=== PATIENT | male | born 1980 | race Caucasian/White ===

== ENCOUNTER 2019-07-31 12:47 | Inpatient (IN) | payer OTHER ==
[2019-07-31 14:22] VITALS: BMI 27.4
--- NOTE | 2019-07-31 15:39 | HP ---
CIWA Score Nausea/Vomitin Muscle Tremors: 4-Moderate,w/Arms Extend Anxiety: 4-Mod. Anxious/Guarded Agitation: 4-Moderately Restless Paroxysmal Sweats: 2 Orientation: 1-Uncertain about Date Tacttile Disturbances: 2-Mild Itch/Numbness/Burn Auditory Disturbances: 2-Mild Harshness/Frighten Visual Disturbances: 2-Mild Sensitivity Headache: 2-Mild CIWA-Ar Total Score: 25 - Admission Criteria OASAS Guidelines: Admission for Medically Managed Detox: Requires at least one of the followin. CIWA greater than 12 2. Seizures within the past 24 hours 3. Delirium tremens within the past 24 hours 4. Hallucinations within the past 24 hours 5. Acute intervention needed for co occurring medical disorder 6. Acute intervention needed for co occurring psychiatric disorder 7. Severe withdrawal that cannot be handled at a lower level of care (continued vomiting, continued diarrhea, abnormal vital signs) requiring intravenous medication and/or fluids 8. Admission ROS BHS - HPI Allergies/Adverse Reactions: Allergies Allergy/AdvReac Type Severity Reaction Status Date / Time No Known Allergies Allergy Verified 07/31/19 14:17 History of Present Illness: pt here requesting detox from etoh use , reports 25 beers/day since 2-3 mo ago , previously in AA x 2 mo , intermittent periods of sobriety since 19 , longest sobriety 64 days . latest use yesterday . pmhx : htn Exam Limitations: Clinical Condition - Ebola screening Have you traveled outside of the country in the last 21 days: No Have you had contact with anyone from an Ebola affected area: No Do you have a fever: No - Review of Systems Constitutional: See HPI, Loss of Appetite EENT: reports: No Symptoms Reported Respiratory: reports: No Symptoms reported Cardiac: reports: No Symptoms Reported, Other (reports chest tightness with anxiety) GI: reports: See HPI, Nausea, Poor Appetite : reports: No Symptoms Reported Musculoskeletal: reports: No Symptoms Reported Integumentary: reports: No Symptoms Reported Neuro: reports: See HPI Endocrine: reports: No Symptoms Reported Psychiatric: reports: Agitated, Anxious Patient History - Smoking Cessation Smoking history: Never smoked - Substances abused Alcohol Substance route: Oral Frequency: Daily Amount used: 18 beers Age of first use: 19 Date of last use: 07/30/19 Admission Physical Exam S - Vital Signs Vital Signs: Vital Signs - 24 hr 11/21/19 14:10 Temperature 99.5 F Pulse Rate 88 Respiratory 20 Rate Blood Pressure 143/94 - Physical General Appearance: Yes: Moderate Distress, Tremorous, Anxious HEENTM: Yes: EOMI, Hearing grossly Normal, Normocephalic, Normal Voice Respiratory: Yes: Lungs Clear, Normal Breath Sounds, Decreased Breath Sounds, No Respiratory Distress, No Accessory Muscle Use Neck: Yes: No masses,lesions,Nodules, Trachea in good position Cardiology: Yes: Regular Rhythm, Regular Rate, S1, S2 Abdominal: Yes: Non Tender, Soft Musculoskeletal: Yes: Gait Steady Extremities: Yes: Normal Range of Motion, Tremors Neurological: Yes: Alert, Motor Strength 5/5, Depressed Affect Integumentary: Yes: Warm - Diagnostic (1) Alcohol abuse Current Visit: Yes Status: Chronic Breathalyzer - Breathalyzer Breathalyzer: 0.030 Urine Drug Screen - Test Device Lot number: [id number] Expiration date: 04/09/21 - Control Is test valid?: Yes - Results Drug screen NEGATIVE: Yes Inpatient Rehab Admission - Rehab Decision to Admit Inpatient rehab admission?: No
[2019-07-31] MEDS ORDERED: MELATONIN 5 MG TABLETS PO PRN (15:59)
[2019-07-31] MEDS ORDERED: MAGNESIUM HYDROX 2400MG/30ML ORAL SUSPENSION 30 ML CUP PO PRN (15:59)
[2019-07-31] MEDS ORDERED: MENTHOL/PHENOL 1 EACH UD MM PRN (15:59)
[2019-07-31] MEDS ORDERED: MAGNESIUM CITRATE 300 ML BOTTLE PO PRN (15:59)
[2019-07-31] MEDS ORDERED: hydrOXYzine PAMOATE 25 MG CAPSULE (FP) PO PRN (15:59)
[2019-07-31] MEDS ORDERED: ONDANSETRON *ODT* 4 MG TABLET SL PRN (15:59)
[2019-07-31] MEDS ORDERED: BISMUTH SUBSALICYLATE 524 MG/30 ML UD PO PRN (15:59)
[2019-07-31] MEDS ORDERED: ACETAMINOPHEN 325 MG TABLET (FP) PO PRN ×2 (15:59)
[2019-07-31] MEDS ORDERED: METHOCARBAMOL 500 MG TABLET PO PRN (15:59)
[2019-07-31] MEDS ORDERED: diazePAM 5 MG TABLET PO ONE (16:00)
[2019-07-31] MEDS ORDERED: diazePAM 5 MG TABLET PO PRN (16:00)
[2019-07-31] MEDS ORDERED: chlordiazePOXIDE HCL 25 MG CAPSULE PO PRN (16:43)
[2019-07-31] MEDS: chlordiazePOXIDE HCL 25 MG CAPSULE PO SCH ×2 (18:12→22:15)
[2019-07-31] MEDS: MAG HYDROX/AL HYDROX/SIMETH 30 ML UNIT-DOSE CUP PO PRN (18:16)
[2019-07-31] MEDS ORDERED: diazePAM 5 MG TABLET PO SCH (22:00)
[2019-07-31] MEDS ORDERED: THIAMINE HCL 100 MG TABLET (FP) PO SCH (22:00)
[2019-08-01] MEDS: chlordiazePOXIDE HCL 25 MG CAPSULE PO SCH ×3 (05:55→16:53)
[2019-08-01] MEDS: MAG HYDROX/AL HYDROX/SIMETH 30 ML UNIT-DOSE CUP PO PRN (06:25)
[2019-08-01 09:59] LABS: ALBUMIN 3.6 g/dl (3.4-5.0); BILIRUBIN,TOTAL 1.3 mg/dL (0.2-1); CALCIUM 8.9 mg/dL (8.5-10.1); CREATININE 0.7 mg/dL (0.55-1.3); POTASSIUM 3.3 mmol/L (3.5-5.1); TOT PROT 8.1 g/dl (6.4-8.2)
[2019-08-01] MEDS ORDERED: PRENATAL VITAMINS W/ FOLIC ACID TABLET (FP) PO SCH (10:00)
[2019-08-01 10:01] LABS: HEMATOCRIT 41.2 % (35.4-49); HEMOGLOBIN 13.6 GM/dL (11.7-16.9); MCH 27.5 pg (25.7-33.7); MCHC 32.9 g/dl (32.0-35.9); MEAN CELL VOLUME 83.4 fl (80-96); MEAN PLT VOLUME 8.9 fl (7.5-11.1); PLATELET COUNT 112 K/MM3 (134-434); RBC 4.94 M/mm3 (4.00-5.60); RDW 15.1 % (11.9-15.9); WHITE BLOOD COUNT 4.2 K/mm3 (4.0-10.0)
--- NOTE | 2019-08-01 12:45 | PN ---
[facility] CIWA - CIWA Score Nausea/Vomitin-Mild Nausea/No Vomiting Muscle Tremors: 2 Anxiety: 2 Agitation: 2 Paroxysmal Sweats: No Perspiration Orientation: 0-Oriented Tacttile Disturbances: 1-Very Mild Itch/Numbness Auditory Disturbances: 0-None Visual Disturbances: 0-None Headache: 2-Mild CIWA-Ar Total Score: 10 S Progress Note (SOAP) Subjective: alert,irrtable,anxious,interrupted sleep,tremor Objective: 08/01/19 12:42 Vital Signs Temperature 97.7 F 08/01/19 09:20 Pulse Rate 76 08/01/19 09:20 Respiratory Rate 18 08/01/19 09:20 Blood Pressure 135/98 08/01/19 09:20 O2 Sat by Pulse Oximetry (%) Laboratory Last Values WBC 4.2 K/mm3 (4.0-10.0) 08/01/19 08:00 RBC 4.94 M/mm3 (4.00-5.60) 08/01/19 08:00 Hgb 13.6 GM/dL (11.7-16.9) 08/01/19 08:00 Hct 41.2 % (35.4-49) 08/01/19 08:00 MCV 83.4 fl (80-96) 08/01/19 08:00 MCH 27.5 pg (25.7-33.7) 08/01/19 08:00 MCHC 32.9 g/dl (32.0-35.9) 08/01/19 08:00 RDW 15.1 % (11.9-15.9) 08/01/19 08:00 Plt Count 112 K/MM3 (134-434) L 08/01/19 08:00 MPV 8.9 fl (7.5-11.1) 08/01/19 08:00 Sodium 134 mmol/L (136-145) L 08/01/19 08:00 Potassium 3.3 mmol/L (3.5-5.1) L 08/01/19 08:00 Chloride 99 mmol/L (98-107) 08/01/19 08:00 Carbon Dioxide 28 mmol/L (21-32) 08/01/19 08:00 Anion Gap 7 MMOL/L (8-16) L 08/01/19 08:00 BUN 6.0 mg/dL (7-18) L 08/01/19 08:00 Creatinine 0.7 mg/dL (0.55-1.3) 08/01/19 08:00 Est GFR (CKD-EPI)AfAm 139.73 08/01/19 08:00 Est GFR (CKD-EPI)NonAf 120.56 08/01/19 08:00 Random Glucose 96 mg/dL (74-106) 08/01/19 08:00 Calcium 8.9 mg/dL (8.5-10.1) 08/01/19 08:00 Total Bilirubin 1.3 mg/dL (0.2-1) H 08/01/19 08:00 AST 53 U/L (15-37) H 08/01/19 08:00 ALT 29 U/L (13-61) 08/01/19 08:00 Alkaline Phosphatase 106 U/L (45-117) 08/01/19 08:00 Total Protein 8.1 g/dl (6.4-8.2) 08/01/19 08:00 Albumin 3.6 g/dl (3.4-5.0) 08/01/19 08:00 RPR Titer Nonreactive (NONREACTIVE) 08/01/19 08:00 Assessment: 08/01/19 12:44 withdrawal symptom Plan: continue detox librium regimen,k is 3.3,kdur 20 meq po daily for 3 days
[2019-08-01] MEDS ORDERED: POTASSIUM CHLORIDE TABS 20 MEQ TABLET.ER (FP) PO SCH (13:00)
[2019-08-01 17:12] VITALS: TEMP 98.1
--- NOTE | 2019-08-01 17:18 | CONSULT ---
[facility] Psychiatric Consult - Data Date of interview: 08/01/19 Admission source: [facility] Identifying data: First admission to [facility] for this 38 y/o male self-referred for detoxification (KIRAN issues : alcohol). Interviewed at [address] [place] [address]. Patient is single, no dependents, domiciled and reportedly self-employed. Substance Abuse History: Discussed with the patient. Details in current [facility] report. As follows : Smoking history: Never smoked. Substances abused. Alcohol. Substance route: Oral. Frequency: Daily. Amount used: 18 beers. Age of first use: 19. Date of last use: 07/30/19 Medical History: Patient endorses good general health. Psychiatric History: Patient denies history of psychiatric hospitalizations, OPD care or suicide attempts. Physical/Sexual Abuse/Trauma History: Patient denies. Additional Comment: Negative toxicology. Mental Status Exam - Mental Status Exam Alert and Oriented to: Time, Place, Person Cognitive Function: Good Patient Appearance: Well Groomed Mood: Hopeful, Euthymic Affect: Appropriate, Normal Range Patient Behavior: Appropriate, Cooperative Speech Pattern: Clear, Appropriate Voice Loudness: Normal Thought Process: Intact, Goal Oriented Thought Disorder: Not Present Hallucinations: Denies Suicidal Ideation: Denies Homicidal Ideation: Denies Insight/Judgement: Fair Sleep: Well Appetite: Good Muscle strength/Tone: Normal Gait/Station: Normal Psychiatric Findings - Problem List ([place] 1, 2,3) (1) Alcohol use disorder Current Visit: Yes Status: Chronic - Initial Treatment Plan Initial Treatment Plan: Psychoeducation. Sleep hygiene. Detoxification. AA meetings. Groups. MAT services : discussed with the patient. Observation.
[2019-08-01] MEDS ORDERED: METOPROLOL TARTRATE 25 MG TABLET (FP) PO ONE (18:00)
[2019-08-01 18:38] VITALS: BP 140/98; PULSE 73
--- NOTE | 2019-08-01 18:51 | DS ---
[facility] Rehab Discharge Summary - [facility] Rehab Discharge Summary Admission Date: 07/31/19 Discharge Date: 08/04/19 - History Present History: Alcohol dependence Additional Comments: CLIENT SIGNED OUT AMA. DECLINES ANY DISCUSSION TO CONTINUE TXMENT. RISK FOR ABRUPTLY DISCONTINUING TXMENT DISCUSSED. TO INCLUDE SEIZURE/. CLIENT VERBALIZED UNDERSTANDING AND ACCEPTS RISK. Pertinent Past History: HTN - Discharge Physical Exam Vital Signs: Vital Signs Temperature 98.1 F 08/01/19 17:11 Pulse Rate 73 08/01/19 18:38 Respiratory Rate 18 08/01/19 18:38 Blood Pressure 140/98 08/01/19 18:38 O2 Sat by Pulse Oximetry (%) Pertinent Admission Physical Exam Findings: WITHDRAWAL SX'S Laboratory Tests 08/01/19 08/01/19 08/01/19 08:00 08:00 08:00 WBC 4.2 RBC 4.94 Hgb 13.6 Hct 41.2 MCV 83.4 MCH 27.5 MCHC 32.9 RDW 15.1 Plt Count 112 L MPV 8.9 Sodium 134 L Potassium 3.3 L Chloride 99 Carbon Dioxide 28 Anion Gap 7 L BUN 6.0 L Creatinine 0.7 Est GFR (CKD-EPI)AfAm 139.73 Est GFR (CKD-EPI)NonAf 120.56 Random Glucose 96 Calcium 8.9 Total Bilirubin 1.3 H AST 53 H ALT 29 Alkaline Phosphatase 106 Total Protein 8.1 Albumin 3.6 RPR Titer Nonreactive D/W CLIENT ABOUT ABN k+ LEVEL AND RISK ASSOCIATED IF NOT CORRECTED. ENCOURAGED CLIENT TO WAIT FOR REPEAT LABS SCHED FOR THE MORNING. CLIENT DECLINES. STATES HIS MOTHER IS ALREADY ON HER WAY AND CANT TURN BACK. ADVISED CLIENT TO F/U WITH PCP OR ER FOR C/O C.P, ABNORMAL HEART BEAT, WORSENING FATIGUE, MUSCLE CRAMPS - Treatment Discharge Condition: Discharge condition good - Medication Discharge Medications: Ambulatory Orders Escitalopram Oxalate [Lexapro -] 25 mg PO DAILY 07/31/19 Metoprolol Succinate 100 mg PO DAILY 07/31/19 - Medication-Assisted Treatment (MAT) Medication-Assisted Treatment (MAT): No - Discharge Instructions Diet, activity, other medical instructions: Diet: Activity: Other medical instructions: - Diagnosis (1) Alcohol dependence with withdrawal, uncomplicated Status: Acute (2) HTN (hypertension) Status: Chronic Qualifiers: Hypertension type: essential hypertension Qualified Code(s): I10 - Essential (primary) hypertension - Follow-up Referral Minutes to complete discharge: 30 - AMA Did Patient Leave Against Medical Advice: Yes
[2019-08-02] MEDS ORDERED: chlordiazePOXIDE HCL 25 MG CAPSULE PO SCH (05:00)
[2019-08-02] MEDS ORDERED: diazePAM 5 MG TABLET PO SCH (06:00)
[2019-08-03] MEDS ORDERED: chlordiazePOXIDE HCL 10 MG CAPSULE PO PRN
[2019-08-03] MEDS ORDERED: chlordiazePOXIDE HCL 10 MG CAPSULE PO SCH (05:00)
[2019-08-03] MEDS ORDERED: diazePAM 5 MG TABLET PO ONE (06:00)
[2019-08-04] MEDS ORDERED: chlordiazePOXIDE HCL 10 MG CAPSULE PO SCH (05:00)
[2019-08-05] MEDS ORDERED: chlordiazePOXIDE HCL 10 MG CAPSULE PO ONE (05:00)
== END 2019-08-01 18:17 | disposition left against medical advice (07) | DRG 770 ==
LOC: YASAS 12:47 → Y3N 17:10
PROVIDERS: ADMIT Allergy & Immunology; ATTEND Allergy & Immunology
PROC: HZ2ZZZZ Detoxification Services for Substance Abuse Treatment (ICD-10-PCS; principal; 2019-08-01)
DX: F10.230 Alcohol dependence with withdrawal, uncomplicated (principal)
CPT/HCPCS: 36415; 80053; 85027; 86593